=== PATIENT | male | born 1990 | race Caucasian/White ===

== ENCOUNTER 2018-11-15 12:22 | Emergency (ER) | payer MEDICAID, SELFPAY ==
[2018-11-15 12:53] VITALS: BP 151/100; PULSE 79; RESP 15; TEMP 36.4; O2SAT 99
--- NOTE | 2018-11-15 13:48 | NUR.NOTE ---
patient changed into gown Nursing Note:
--- NOTE | 2018-11-15 14:46 | ED.GENADUL_ITS ---
Discharge Plan Disposition Patient Disposition: HOME Condition: Stable Discharge Details Chief Complaint: Nk/Back Pain Clinical Impression: Acute exacerbation of chronic low back pain Primary Care Provider: Bravo Anton ED Provider: Vanesa Bacon Home Meds and New Rx's Prescriptions: New diazepam [Valium] 5 mg tablet 5 mg PO BID PRN (Reason: muscle spasm) Qty: 7 RF: 0 Continued albuterol 90 mcg/actuation aerosol 108 mcg IH .q 6 hrs RF: 0 ibuprofen [IBU-200] 200 mg Tablet 400 mg PO QID PRNRF: 0 Discontinued methocarbamol [Robaxin-750] 750 mg Tablet 750 mg PO QID RF: 0 Discharge Instructions Instructions: Low Back Strain (ED) Additional Instructions: Alternate tylenol and motrin as needed and directed for pain. Take the valium as needed and directed for pain not relieved with Tylenol or Motrin. Follow-up with your primary care doctor in 1 week for reevaluation. Call the pain clinic to schedule a follow-up appointment for reevaluation. Follow-up with your scheduled appointment with your neurologist next month. Discharge Data Discharge Date/Time-TO BE ENTERED AT DEPARTURE: 11/15/18 17:13 Discharge Physician: Vanesa Bacon Medical Decision Making 28-year-old male with a history of chronic back pain since May 2018 status post a fall with lumbar herniated disc found on MRI in July 2018 who presents with worsening lower back pain with radiation down both legs since another fall 3 weeks ago. Also admits to intermittent perineum numbness and numbness and tingling in bilateral lower extremities. No urinary or fecal incontinence or fever. Also admits to intermittent chronic diffuse abdominal pain but none at present. Blood pressure hypertensive. Afebrile. Patient appears uncomfortable. He has diffuse tenderness to palpation of his lower back. No focal deficits on exam. Neurovascularly intact. Altered two-point discrimination to bilateral lower extremities but sensation to light and sharp touch intact. Motor/sensory grossly in b/l UE. Patient does not want narcotics for pain. Explained to patient that as he is here for pain, offered Valium and oxycodone to help for some relief and he is now agreeable. Differential diagnoses includes acute on chronic lower back pain, pain associated with lumbar disc herniation, lumbar strain. Do not suspect acute cord compression due to lack of physical findings and chronicity of leg pain and paresthesias but with previously diagnosed lumbar disc herniation, will obtain a lumbar spine MRI to rule out cauda equina. 1645 --MRI notes small L4-5 disc herniation but no evidence of cord compression. Post-void residual 90s. Patient feels better after Valium and oxycodone. Patient was able to ambulate around the room. Patient advised to follow-up with a scheduled appointment with neurology next month, as well as a follow-up appointment with his primary care doctor in the pain clinic. He was recommended to continue alternating Tylenol Motrin, ice and heat, and to discuss the possibility of steroid injections for his chronic back pain. Will send home with valium script. Instructed to stop robaxin. Patient was instructed to return here immediately with any concerns. Medical Records Medical records reviewed: Yes I reviewed the patient's medical records. Imaging Data Radiologic Study: Attestation: I personally reviewed and interpreted this imaging study as follows: Radiologist's impression: MRI:MR lumbar spine wo SYMPTOMS/DIAGNOSIS: LOWER BACK PAIN X 3 WEEKS SINCE REINJURY TO LOWER BACK, PREVIOUS INJURY IN MAY 2018, RADIATING BILATERALLY DOWN LEGS, ? CAUDA EQUINA SYNDROME MRI OF THE LUMBAR SPINE: Routine noncontrast examination. No priors available for comparison. The conus medullaris has a normal appearance and location. At L4-L5, there is disc desiccation. There is a small central disc herniation. No nerve root or central spinal canal stenosis results. The remaining disc levels show normal si gnal in the intervertebral discs. No focal disc herniation, central spinal canal or neural foraminal stenosis is seen at these levels. Apart from the degenerative endplate signal changes at L4-L5, marrow signal is within normal limits. IMPRESSION: 1. No evidence of nerve root compression or spinal canal mass. 2. Small disc herniation centrally at L4-L5. No nerve root or central spinal canal stenosis results. HPI General Mode of arrival: ambulatory . Date/Time Provider Initiated Documentation: 11/15/18 12:50 . Limitations to Documentation: no limitations . Information obtained by: patient . HPI Narrative: 28-year-old male with a history of chronic back pain since May 2018 status work injury which resulted in lumbar herniated disc found on MRI in July 2018 who presents with worsening lower back pain with radiation down both legs since another fall 3 weeks ago. Pt states he fell getting out of bed and landed with his back extended onto a tv stand. Pt states his pain in his lower back has been progressingly getting worse since then. Pt has been able to ambulate but with pain. Pt states his pain radiates from his entire lower back down to his feet. He also admits to intermittent perineum numbness and numbness and tingling in bilateral lower extremities since his injury in May but states it has been worse since his fall 3 weeks ago. He denies urinary or fecal incontinence or fever. Also admits to intermittent chronic diffuse abdominal pain since May 2018 but none at present. States he has been eating a drinking normally. Pt states he was seen at the pain clinic recently for his pain was told that they didn't know what was causing my extreme pain and referred him to neurology. Pt has a follow up appointment with Veronica Lazo next month. He also admits to cold sensation with tingling in b/l hands and feet. He admits to a h/o chronic neck pain but denies any recent neck injury. Related Data Home Medications Medication Instructions Recorded Confirmed albuterol 90 mcg/actuation aerosol 108 mcg IH .q 6 hrs 09/25/18 11/15/18 inhaler diazepam [Valium] 5 mg PO BID PRN #7 tab 11/15/18 ibuprofen [IBU-200] 400 mg PO QID PRN 11/15/18 11/15/18 Previous Rx's Medication Instructions Recorded diazepam [Valium] 5 mg PO BID PRN #7 tab 11/15/18 Allergies Allergy/AdvReac Type Severity Reaction Status Date / Time house dust mite Allergy Mild Verified 11/15/18 13:01 prednisone Allergy dizzy, Verified 11/15/18 13:01 nausea, disoriented General Stated Complaint: Nk/Back Pain MENDOZA: 3 Review of Systems Review of Systems All systems reviewed & are unremarkable except as noted in HPI and below Constitutional Reports as per HPI, Denies chills, Denies fever(s) and Denies weakness Eyes Denies blurry vision ENT Denies dizziness, Denies sore throat and Denies throat swelling Cardiovascular Denies chest pain and Denies dyspnea Respiratory Denies dyspnea Gastrointestinal Denies abdominal pain, Denies diarrhea and Denies vomiting Genitourinary Denies hematuria and Denies dysuria Musculoskeletal Reports back pain and Reports numbness Integumentary/Breasts Denies lesions and Denies rash Neurologic Denies dizziness, Reports numbness and Denies weakness Allergic/Immunologic Denies throat swelling [facility] Medical History Bronchitis (Acute) Bronchospasm (Acute) Lumbago with sciatica, left side (Acute) Lumbago with sciatica, right side (Acute) Paresthesia (Acute) Pneumonia (Acute) Obesity (Chronic) Family History Mother Diabetes Maternal Grandfather Cancer Maternal Grandmother Cancer Diabetes Hypertension Paternal Grandfather Heart disease Social History Smoking/Tobacco Use Status: Current every day tobacco type: cigarettes alcohol intake: current alcohol intake frequency: a few times a month substance use type: marijuana Exam Const General: cooperative, healthy appearing and no acute distress HENMT Head: normal to inspection Face and sinus: normal facial exam Eyes General: appearance normal, both eyes and all related structures EOM: EOM intact bilaterally Neck Neck: normal visual inspection and No submandibular swelling Lymphatic: no lymphadenopathy noted Chest Chest: normal inspection of the chest and no tenderness Resp Effort & Inspection: normal respiratory effort and able to speak in complete s entences Auscultation: clear to auscultation bilaterally Cardio Rate: regular rate Rhythm: regular rhythm GI Inspection: normal to inspection Palpation: soft, not firm, not rigid and nontender Auscultation: normal bowel sounds Male General Exam: Yes normal external exam Scrotum: scrotum normal Testes: normal Back/Spine/Pelvis Thoracic/Lumbar Spine: thoracic and lumbar spine normal to inspection, straight leg raise negative bilaterally, No thoracic spinal tenderness and No lumbar spinal tenderness Pelvis: no pain with anterior-posterior compression Skin General skin exam: no rashes or lesions noted Neuro General: alert, awake, oriented x3, moves all extremities, normal light touch, pain and propioception, no meningeal signs and no focal motor deficits Cognition: normal cognition Speech: speech normal Motor: muscle tone normal throughout and strength 5/5 throughout Sensory Exam: other (intact sharp/dull touch in b/l LE but not 2 point discrimination ) DTR's: Rt Patellar: 2+, Lt Patellar: 2+, Rt Ankle: 2+ and Lt Ankle: 2+ Plantar Reflexes: Equivocal: bilateral Extrem General: normal to inspection, full ROM, normal capillary refill, no calf tenderness bilaterally and no edema Right upper extremity: normal to inspection and full ROM Left upper extremity: normal to inspection and full ROM Right lower extremity: foot Details: vascular exam Details: dorsalis pedis pulse present and posterior tibial pulse present Left lower extremity: foot Details: vascular exam Details: dorsalis pedis pulse present and posterior tibial pulse present Psych Appearance: grossly normal Mental Status: mental status grossly normal Speech and Movement: speech and movement normal Affect: normal affect Course Vital Signs Temperature 97.5 F L 11/15/18 12:53 Pulse 79 11/15/18 12:53 Respiratory Rate 15 11/15/18 12:53 Blood Pressure 151/100 H 11/15/18 12:53 Pulse Oximetry 99 11/15/18 12:53 Temperature 97.5 F L 11/15/18 12:53 Temperature Source Temporal Artery Scan 11/15/18 12:53 Pulse 79 11/15/18 12:53 Respiratory Rate 15 11/15/18 12:53 Respiratory Effort Non-Labored 11/15/18 12:59 Blood Pressure 151/100 H 11/15/18 12:53 Blood Pressure Position Standing 11/15/18 12:53 Pulse Oximetry 99 11/15/18 12:53 Oxygen Delivery Method Room Air 11/15/18 12:53 Oxygen Flow Rate 0 11/15/18 12:53 Pain Level 9 11/15/18 12:53
--- NOTE | 2018-11-15 15:45 | DI.MRI_ITS ---
SYMPTOMS/DIAGNOSIS: LOWER BACK PAIN X 3 WEEKS SINCE REINJURY TO LOWER BACK, PREVIOUS INJURY IN MAY 2018, RADIATING BILATERALLY DOWN LEGS, ? CAUDA EQUINA SYNDROME MRI OF THE LUMBAR SPINE: Routine noncontrast examination. No priors available for comparison. The conus medullaris has a normal appearance and location. At L4-L5, there is disc desiccation. There is a small central disc herniation. No nerve root or central spinal canal stenosis results. The remaining disc levels show normal signal in the intervertebral discs. No focal disc herniation, central spinal canal or neural foraminal stenosis is seen at these levels. Apart from the degenerative endplate signal changes at L4-L5, marrow signal is within normal limits. IMPRESSION: 1. No evidence of nerve root compression or spinal canal mass. 2. Small disc herniation centrally at L4-L5. No nerve root or central spinal canal stenosis results. The findings were discussed with Dr. Bacon of the Emergency Department on the date of the examination.
[2018-11-15] MEDS: Diazepam 5 MG TAB PO (15:57)
[2018-11-15] MEDS: oxyCODONE 5 MG TAB PO (15:57)
--- NOTE | 2018-11-15 15:57 | NUR.NOTE ---
patient medicated per MD order, returned from DI Nursing Note:
[2018-11-15 16:00] VITALS: BP 134/96; PULSE 75; RESP 18; TEMP 36.8; O2SAT 98
--- NOTE | 2018-11-15 16:47 | NUR.NOTE ---
PVR 96 mL Nursing Note:
--- NOTE | 2018-11-15 17:10 | NUR.NOTE ---
patient received discharge and follow up instrucitons per MD order Nursing Note:
== END 2018-11-15 17:13 | disposition home or self-care (01) ==
PROVIDERS: Emergency Provider Physician Assistant; PCP Family Medicine
DX: M54.5 Low back pain (principal); G89.29 Other chronic pain; M51.26 Other intervertebral disc displacement, lumbar region
CPT/HCPCS: 99284; 72148; 99283

== ENCOUNTER 2019-03-25 00:33 | Outpatient (CLI) | payer MEDICAID, SELFPAY ==
--- NOTE | 2019-03-25 09:21 | DI.MRI_ITS ---
SYMPTOMS/DIAGNOSIS: MID BACK PAIN, M549, AND LOW BACK PAIN RADIATING TO LEFT FLANK; CIRCUMFERENTIAL PARESTHESIAS BELOW UMBILICUS, R20.2; INJURY LIFTING IN MAY 2018, BILATERAL LEG SYMPTOMS OF NUMBNESS AND TINGLING MRI OF THE THORACIC SPINE: T1, T2, STIR and T2 3D sagittal and T2 axial sequences were performed. There is mild posterior bulging of the T4-5 disc. At T5-6, there is a small central disc protrusion, which effaces the anterior CSF space. It may slightly impinge on the anterior aspect of the thoracic cord. Minimal disc bulging is also seen at T6-7 and T7-8. There is no central canal stenosis or neural foraminal narrowing. There is no evidence of compression fracture. The marrow signal and cord signal appear normal. IMPRESSION: Small central disc protrusion at T5-6 may slightly impinge on the anterior aspect of the thoracic cord. Mild disc bulging is seen at T4-5, T6-7 and T7-8.
== END 2019-03-25 00:53 ==
PROVIDERS: PCP Family Medicine; Visit Provider Neurological Surgery
DX: M51.14 Intervertebral disc disorders with radiculopathy, thoracic region (principal); M54.6 Pain in thoracic spine; R20.2 Paresthesia of skin
CPT/HCPCS: 72146

== ENCOUNTER 2019-06-10 00:41 | Outpatient (CLI) | payer MEDICAID, SELFPAY ==
--- NOTE | 2019-06-10 12:00 | DI.MRI_ITS ---
SYMPTOMS/DIAGNOSIS: HAND NUMBNESS, R20.0, HAND WEAKNESS, R29.898, LEG NUMBNESS, R20.0, NECK PAIN, M54.2 MRI OF THE CERVICAL SPINE: Routine noncontrast examination was performed. There are no priors for comparison. There is patient motion artifact present. There is normal signal in the spinal cord. No evidence of tonsillar ectopia is seen. No focal disc herniation, central spinal canal or neural foraminal stenosis is seen in the cervical spine. There is normal marrow signal present. IMPRESSION: Negative MRI of the cervical spine.
== END 2019-06-10 01:01 ==
PROVIDERS: PCP Family Medicine; Visit Provider Neurological Surgery
DX: R20.0 Anesthesia of skin (principal); R29.898 Other symptoms and signs involving the musculoskeletal system; M54.2 Cervicalgia
CPT/HCPCS: 72141